=== PATIENT | female | born 1965 | race Caucasian/White ===

== ENCOUNTER 2023-09-11 06:54 | Inpatient (IN) | payer MEDICAID ==
[~2023-09-11] VITALS: Ht 172.7 cm; Wt 130.0 kg
[2023-09-11] MEDS ORDERED: LORazepam 2MG/ML-1ML VIAL ONE (06:58)
[2023-09-11] MEDS: LORazepam 2MG/ML-1ML VIAL IV ONE (07:09)
[2023-09-11] MEDS: levETIRAcetam 1000 mg/100ml 100 ML IV ONE (07:38)
[2023-09-11 07:43] VITALS: PULSE 61; RESP 22; O2SAT 100
[2023-09-11 07:44] LABS: Basophils # (auto) 0.1 10 ^3/uL (0-0.2); Basophils % (auto) 0.6 % (0.0-2.0); Eosinophils # (auto) 0.1 10 ^3/uL (0-0.8); Eosinophils % (auto) 0.7 % (0.0-7.0); Hematocrit 43.1 % (36.0-46.0); Lymphocytes % (auto) 9.7 % (10.0-50.0); Mean Corpuscular Hemoglobin 30.8 pg (28.0-32.0); Mean Corpuscular Hgb Conc. 34.9 g/dL (32.0-36.0); Mean Corpuscular Volume 88.3 fL (80.0-100.0); Monocytes # (auto) 0.5 10 ^3/uL (0-1.3); Monocytes % (auto) 4.5 % (0.0-12.0); Neutrophils # (auto) 8.4 10 ^3/uL (1.6-8.6); Neutrophils % (auto) 84.5 % (37.0-80.0); Red Blood Cells 4.88 10^6/uL (4.0-5.20); Red Cell Distribution Width 13.7 % (11.8-14.3); White Blood Cell 9.9 10^3/uL (4.4-10.8)
[2023-09-11 07:47] LABS: Chloride 112 mmol/L (98-107); Potassium 3.7 mmol/L (3.5-5.1); Sodium 140 mmol/L (136-145)
[2023-09-11 07:48] LABS: Anion Gap 2 (5-15); Calcium 9.3 mg/dL (8.5-10.1); Carbon Dioxide 26 mmol/L (20-30)
[2023-09-11 07:53] LABS: BUN/Creatinine Ratio 11.3 (10.0-20.0); Blood Urea Nitrogen 7 mg/dL (9-23); Glucose 140 mg/dL (74-106)
[2023-09-11 09:26] LABS: Urine Bacteria FEW /hpf (None Seen); Urine Blood Negative /uL (Negative); Urine Clarity Turbid (Clear); Urine Color Yellow (Yellow); Urine Hyaline Cast FEW /lpf (0 - 2); Urine Mucus FEW (None Seen); Urine Protein, UAD Negative (Negative); Urine Specific Gravity 1.021 (1.001-1.035); Urine Urobilinogen Normal (Negative); Urine WBC 2 /hpf (0 - 5); Urine pH 5.5 (5.0-9.0)
[2023-09-11] MEDS ORDERED: LORazepam 2MG/ML-1ML VIAL IV ONE (09:30)
[2023-09-11] MEDS ORDERED: ATOR20TA50 PO (12:09)
[2023-09-11] MEDS ORDERED: CHOLTAB15 PO (12:09)
[2023-09-11] MEDS ORDERED: SERT-289 PO (12:09)
[2023-09-11] MEDS ORDERED: LEVE500T3 PO (12:09)
[2023-09-11] MEDS ORDERED: METO-289 PO (12:09)
[2023-09-11] MEDS ORDERED: LORazepam 2MG/ML-1ML VIAL IV PRN (12:15)
[2023-09-11] MEDS ORDERED: NITROGLYCERIN 0.4 MG SL TAB SL PRN (12:15)
[2023-09-11] MEDS ORDERED: ACETAMINOPHEN 325 MG TAB PO PRN (12:15)
[2023-09-11] MEDS ORDERED: ONDANSETRON HCL 4 MG/2 ML VIAL IV PRN (12:15)
[2023-09-11] MEDS ORDERED: DOCUSATE SOD 100 MG CAP PO PRN (12:15)
[2023-09-11] MEDS ORDERED: MORPHINE SULFATE INJ 2 MG/ml SYRG IV PRN (12:15)
[2023-09-11] MEDS: SODIUM CHLORIDE 0.9% 1,000 ML IV SCH (13:16)
[2023-09-11 20:39] VITALS: O2SAT 93
[2023-09-11] MEDS: ATORVASTATIN 20 MG TAB PO SCH (22:00)
[2023-09-11] MEDS: levETIRAcetam 500 mg/100ml 100 ML IV SCH (22:00)
[2023-09-12 05:19] LABS: Basophils # (auto) 0.1 10 ^3/uL (0-0.2); Basophils % (auto) 0.7 % (0.0-2.0); Eosinophils # (auto) 0.2 10 ^3/uL (0-0.8); Eosinophils % (auto) 2.3 % (0.0-7.0); Hematocrit 40.9 % (36.0-46.0); Hemoglobin 14.4 g/dL (12.2-16.2); Lymphocytes # (auto) 1.9 10 ^3/uL (0.4-5.4); Lymphocytes % (auto) 22.1 % (10.0-50.0); Mean Corpuscular Hemoglobin 30.9 pg (28.0-32.0); Mean Corpuscular Hgb Conc. 35.1 g/dL (32.0-36.0); Mean Corpuscular Volume 87.9 fL (80.0-100.0); Monocytes # (auto) 0.6 10 ^3/uL (0-1.3); Monocytes % (auto) 6.7 % (0.0-12.0); Neutrophils # (auto) 5.8 10 ^3/uL (1.6-8.6); Neutrophils % (auto) 68.2 % (37.0-80.0); Red Blood Cells 4.65 10^6/uL (4.0-5.20); Red Cell Distribution Width 13.8 % (11.8-14.3); White Blood Cell 8.5 10^3/uL (4.4-10.8)
[2023-09-12 05:39] LABS: Alanine Aminotransferase 20 U/L (7-40); Alkaline Phosphatase 66 U/L (46-116); Anion Gap 2 (5-15); Aspartate Aminotransferase 10 U/L (13-40); BUN/Creatinine Ratio 10.9 (10.0-20.0); Blood Urea Nitrogen 6 mg/dL (9-23); Calcium 8.8 mg/dL (8.5-10.1); Carbon Dioxide 26 mmol/L (20-30); Chloride 113 mmol/L (98-107); Glucose 90 mg/dL (74-106); Potassium 3.7 mmol/L (3.5-5.1); Sodium 141 mmol/L (136-145)
[2023-09-12 05:40] LABS: Bilirubin, Total 0.5 mg/dL (0.2-1.0); Total Protein 6.2 g/dL (5.7-8.2)
[2023-09-12] MEDS: METOPROLOL SUCCINATE XL 50 MG TAB PO SCH (10:00)
[2023-09-12] MEDS: SERTRALINE HCL 50 MG TAB PO SCH (10:25)
[2023-09-12 14:15] VITALS: BP 137/56; PULSE 85; RESP 12; TEMP 98.4; O2SAT 96
[2023-09-12 15:09] VITALS: BP 117/58; PULSE 69; RESP 12; TEMP 98.4; O2SAT 94
== END 2023-09-12 15:24 | disposition home or self-care (01) | DRG 53 ==
LOC: EDBD 06:54 → ER 06:54 → TELE 12:09
PROVIDERS: ADMIT Nurse Practitioner Family; ATTEND Nurse Practitioner Family
DX: G40.401 Other generalized epilepsy and epileptic syndromes, not intractable, with status epilepticus (principal); E11.9 Type 2 diabetes mellitus without complications; F17.210 Nicotine dependence, cigarettes, uncomplicated; E78.5 Hyperlipidemia, unspecified; F32.A Depression, unspecified; F43.9 Reaction to severe stress, unspecified; I10 Essential (primary) hypertension; E66.01 Morbid (severe) obesity due to excess calories; Z87.820 Personal history of traumatic brain injury; Z68.41 Body mass index [BMI] 40.0-44.9, adult; Z79.4 Long term (current) use of insulin; Z79.899 Other long term (current) drug therapy
CPT/HCPCS: 36415; 70450; 80048; 80053; 81001; 85025; 93005; 95819; 96365; 96375; 99291; G0378

== ENCOUNTER 2023-10-03 16:13 | Emergency (ER) | payer MEDICAID ==
[~2023-10-03] VITALS: Ht 157.5 cm; Wt 119.2 kg
[~2023-10-03 16:13] MED LIST: ATOR20TA50 PO; CHOLTAB15 PO; LEVE500T3 PO; METO-289 PO; SERT-289 PO
[2023-10-03 17:36] VITALS: BP 119/72; PULSE 16; RESP 16; TEMP 98.2; O2SAT 95
[2023-10-03] MEDS: KETOROLAC TROMETH 60MG/2ML VIAL IM ONE (17:48)
[2023-10-03] MEDS ORDERED: IBUP-1456 PO (17:53)
[2023-10-03] MEDS ORDERED: METH-1182 PO (17:53)
== END 2023-10-03 18:12 | disposition home or self-care (01) ==
LOC: ER 16:13
DX: S46.912A Strain of unspecified muscle, fascia and tendon at shoulder and upper arm level, left arm, initial encounter (principal); S53.402A Unspecified sprain of left elbow, initial encounter; I10 Essential (primary) hypertension; E78.5 Hyperlipidemia, unspecified; R56.9 Unspecified convulsions; F17.210 Nicotine dependence, cigarettes, uncomplicated; W01.0XXA Fall on same level from slipping, tripping and stumbling without subsequent striking against object, initial encounter; Y93.89 Activity, other specified; Y92.512 Supermarket, store or market as the place of occurrence of the external cause; Y99.8 Other external cause status
CPT/HCPCS: 73030; 73080; 96372; 99284; J1885